=== PATIENT | female | born 1935 | race Caucasian/White ===

== ENCOUNTER 2018-02-13 15:00 | Emergency (ER) | payer MEDICARE ==
[~2018-02-13] VITALS: Ht 152.4 cm; Wt 60.3 kg
[~2018-02-13 15:00] MED LIST: ANUSOL-HC25 MG PR; ASPIRIN EC81 MG PO; COLACE100 MG PO; GLUCOPHAGE500 MG PO; GUIATUSS AC SY120 M1 PO; IBUPROFEN600 MG PO; LISINOPRIL10 MG PO; MACULAR VITAMI1 EACH PO; MACUVITE TABLE1 EACH PO; MAPAP325 MG PO; METFORMIN HCL500 M1 PO; OXYCODON-ACETA1 EAC2 PO; PRILOSEC20 MG PO; PRO OMEGA; SIMVASTATIN20 MG PO; SPIRIVA RESPIMAT4 GM PO; VIACTIV SOFT C1 EACH PO; VITAMIN D5000 UNIT PO; ZITHROMAX250 MG PO
--- OUTSIDE RECORDS SUMMARY | 2018-02-13 15:06 | XMS ---
PreManage Notification: SUSANNE SUAREZ Security Shank Stitcher Events No recent Security Events currently on file CRITERIA MET - Group Notification CARE PROVIDERS BALDEMAR Jesika ALMODOVAR Primary Care 04/16/2013-04/16/2013 PHONE: [phone] DR BOSSMAN GIBSON Primary Care 07/16/2016-Current PHONE: [phone] BALDEMAR ALMODOVAR Primary Care 04/16/2013-Current PHONE: Unknown Other Current PHONE: Unknown Kamla has no Care Guidelines for this patient. Cherelle VISIT COUNT (12 MO.) 1 Imelda Winn M.C[facility] 1 OP[facility]IA Flores TOTAL 2 NOTE: Visits indicate total known visits. ED/UCC VISIT TRACKING (12 MO.) 02/13/2018 15:01 [facility] Pand[facility] [place] TYPE: Emergency COMPLAINT: - RECTAL BLEEDING/CONSTIPATION 06/03/2017 13:15 [place] DIAGNOSES: - Hemoptysis (<120cc Per Day) - Elevated blood-pressure reading, without diagnosis of hypertension - Hemoptysis - Cough - Solitary pulmonary nodule - Esophageal obstruction - Chronic kidney disease, stage 2 (mild) - coughing up blood clots INPATIENT VISIT TRACKING (12 MO.) No inpatient visits to display in this time frame [email or web address]
[2018-02-13] MEDS ORDERED: RANITIDINE HCL150 MG PO (15:14)
[2018-02-13] MEDS ORDERED: ONDANSETRON HCL8 MG PO (15:15)
[2018-02-13] MEDS ORDERED: LORAZEPAM1 MG PO (15:15)
== END 2018-02-13 16:35 | disposition home or self-care (01) ==
LOC: ED 15:00
DX: K59.00 Constipation, unspecified (principal); K60.2 Anal fissure, unspecified; C22.8 Malignant neoplasm of liver, primary, unspecified as to type; Z85.118 Personal history of other malignant neoplasm of bronchus and lung; E78.00 Pure hypercholesterolemia, unspecified; Z87.891 Personal history of nicotine dependence; Z90.710 Acquired absence of both cervix and uterus; Z88.5 Allergy status to narcotic agent; Z79.899 Other long term (current) drug therapy; Z79.82 Long term (current) use of aspirin
CPT/HCPCS: 99283